=== PATIENT | female | born 1945 | race American Indian/Alaskan Native ===

== ENCOUNTER → 2024-10-01 | Outpatient (BNVA) | payer MEDICARE, MEDICAID, SELFPAY | END | disposition home or self-care (01) | PROVIDERS: PCP Physician Assistant; Referring Provider Physician Assistant; Visit Provider Urology | DX: N32.81 Overactive bladder (principal); I12.9 Hypertensive chronic kidney disease with stage 1 through stage 4 chronic kidney disease, or unspecified chronic kidney disease; E11.22 Type 2 diabetes mellitus with diabetic chronic kidney disease; N18.30 Chronic kidney disease, stage 3 unspecified; E66.9 Obesity, unspecified; Z68.35 Body mass index [BMI] 35.0-35.9, adult; N39.46 Mixed incontinence; Z87.440 Personal history of urinary (tract) infections; E78.00 Pure hypercholesterolemia, unspecified | CPT/HCPCS: 81003; 99212; G0463 ==

== ENCOUNTER 2025-01-04 21:56 | Emergency (ER) | payer MEDICARE, SELFPAY ==
[2025-01-04 21:59] VITALS: BP 169/73; PULSE 66; RESP 18; TEMP 36.8; O2SAT 97
[2025-01-04 22:00] VITALS: BMI 35.5
[2025-01-04 22:25] VITALS: PULSE 76; RESP 18
--- NOTE | 2025-01-04 22:53 | PD.EDADULT ---
ED General RME/HPI General Chief complaint: General Adult/Misc Complain Stated complaint: HIGH SUGAR Time Seen by Provider: 01/04/25 22:25 Arrival date/time: 01/04/25 21:56 RME / HPI RME / HPI narrative: Dr. Ballard?s Main ED Evaluation: 79yo female with a history of DM BIBA from home presents to the ED for a chief complaint of high blood sugar. Patient states she forgot to take her diabetic medications last night. She states she was checking her blood sugar tonight and it was noted to be high , so she came in for evaluation. Patient denies any headache, dizziness, vision changes, cough, chest pain, abdominal pain, N/V or any other associated symptoms. No known allergies. Related Data Home Medications ?Medication ?Instructions ?Recorded ?Confirmed atorvastatin 40 mg tablet 40 mg PO QDAY 11/05/17 10/01/24 hydrochlorothiazide 25 mg tablet 25 mg PO QDAY 11/05/17 10/01/24 lisinopril 40 mg tablet 40 mg PO QDAY 11/05/17 10/01/24 metformin 1,000 mg tablet 1,000 mg PO BID 11/05/17 10/01/24 carvedilol 3.125 mg tablet (Coreg) 3.125 mg PO BID 09/14/20 10/01/24 insulin lispro 100 unit/mL 100 unit subcut QDAY 09/14/20 10/01/24 subcutaneous pen (Humalog KwikPen (U-100) Insulin) gabapentin 100 mg capsule 100 mg PO QPM 12/23/20 10/01/24 estradiol 0.01% (0.1 mg/gram) 2 g vaginal DIRECTED 10/01/24 10/01/24 vaginal cream (Estrace) nitrofurantoin 100 mg PO QDAY 10/01/24 10/01/24 monohydrate/macrocrystals 100 mg capsule (Macrobid) oxybutynin chloride 5 mg tablet 5 mg PO QDAY 10/01/24 10/01/24 vibegron 75 mg tablet (Gemtesa) 75 mg PO QDAY 10/01/24 10/01/24 Allergies Allergy/AdvReac Type Severity Reaction Status Date / Time No Known Allergies Allergy Verified 01/04/25 22:31 Review of Systems Review of Systems Systems Reviewed: All systems reviewed, normal except as documented ED Exam Narrative Physical exam: GENERAL APPEARANCE: alert and oriented x 4, well-developed, well-nourished, no acute distress VITALS: All vitals were reviewed and the pulse ox is 97% on room air, which is normal according to my interpretation. HEENT: Normocephalic, atraumatic; pupils equal, round, reactive to light; EOMI; mucous membranes pink, moist; oropharynx clear NECK: Supple LUNGS: CTABL; no wheezes, no rales, no rhonchi HEART: Regular rate, regular rhythm; normal S1, S2; no murmurs ABDOMEN: non distended; normal BS; soft, no tenderness, no guarding, no rebound; no masses, no organomegaly, no hernia BACK: no CVA tenderness EXTREMITIES: atraumatic; no edema NEUROLOGIC: awake; alert and oriented x4; cranial nerves II-XII grossly intact; no focal sensory or motor deficits PSYCHIATRIC: appropriate mood and affect SKIN: warm, dry, normal color; no rashes Course Quality Measures none Orders Category Date Time Status Compatibility Test Engineer Q4H START 00 Care 01/04/25 22:48 Active Continuous Pulse Oximetry NOW Care 01/04/25 22:48 Completed Fingerstick [Bedside Blood Glucose] NOW Care 01/04/25 22:31 Active CBC Stat Lab 01/04/25 22:56 Completed CMP [Comprehensive Metabolic Panel] Stat Lab 01/04/25 22:56 Completed Magnesium Stat Lab 01/04/25 22:56 Completed VBG [Venous Blood Gas] Stat Lab 01/04/25 22:56 Completed Insulin Regular Med 01/05/25 00:25 Discontinued 5 unit IV X1 ONE Vital Signs Vital signs: Vital Signs Temperature 98.3 F 01/04/25 21:59 Pulse Rate 66 01/04/25 21:59 Respiratory Rate 18 01/04/25 21:59 Blood Pressure 169/73 H 01/04/25 21:59 Pulse Oximetry (%) 97 01/04/25 21:59 Oxygen Delivery Method Room Air 01/04/25 21:59 Discharge Plan Plan Patient Disposition: HOME (Self Care) Disposition Comment: Stable for discharge home Patient condition on transfer: Stable Prescriptions/Referrals Prescriptions/Med Rec: No Action oxybutynin chloride 5 mg tablet 5 mg PO QDAY Gemtesa 75 mg tablet 75 mg PO QDAY estradiol [Estrace] 0.01 % (0.1 mg/gram) cream 2 g vaginal DIRECTED Patient Comments: twice a week nitrofurantoin monohyd/m-cryst [Macrobid] 100 mg capsule 100 mg PO QDAY Rx Instructions: must administer with a meal/food atorvastatin 40 mg Tablet 40 mg PO QDAY metformin 1,000 mg Tablet 1,000 mg PO BID hydrochlorothiazide 25 mg Tablet 25 mg PO QDAY lisinopril 40 mg Tablet 40 mg PO QDAY carvedilol [Coreg] 3.125 mg Tablet 3.125 mg PO BID insulin lispro [Humalog KwikPen Insulin] 100 unit/mL Insulin Pen 100 unit SUBCUT QDAY gabapentin 100 mg capsule 100 mg PO QPM Patient Comments: TK 1 C PO QPM Referrals: Pankaj Vargas PA-C [Primary Care Provider] - In 1 week Problem List Clinical Impression: Acute hyperglycemia Patient/Caregiver Discharge Instructions Discharge Activity: activity as tolerated Education Materials: High Blood Sugar (Hyperglycemia) Additional Instructions: Please return to the emergency department if you have any worsening or any further medical problems and we will help you. Otherwise you should follow-up with your primary care doctor within the next several days. Print Language: Ecuadorean Stand Alone Forms: [employer] Award Info., Patient Portal Info Letter MDM Patient Acuity Low Acuity (complete MDM as needed) Narrative: Scribe Attestation: 01/04/25 - Jalyn Chino am scribing for and in the presence of Dr. Ballard. 5 units of insulin ordered due to the patient's blood sugar being 415. 0205: Repeat FSBS is 232. Patient is stable to be discharged home. Clinical Information Provided by: patient Medical Records reviewed [facility] (Per chart review, patient has no relevant previous ED visits.) Labs/Rad/Tests considered, not ordered None Chronic Illness/Social Conditions which may negatively complicate care or outcome(s)-explain: other (History of DM) EKG EKG not done Labs Labs: Interpreted by me Lab(s) Interpretation(s): CBC is normal, Sodium is 132, Glucose is 415, according to my interpretation. Medication Administration(s) Medication Administration History Discontinued Medications Insulin Human Regular (Insulin Hum Regular 1 Unit/0.01 Ml (Per Unit)) 5 unit IV X1 ONE Stop: 01/05/25 00:26 Last Admin: 01/05/25 00:56 Dose: 5 unit Documented By: BRENDA Co-signed By: AMAN Insulin Diagnosis Differential Diagnosis ED Complaint MDM: hyperglycemia without ketosis, DKA, hyperosmolar state, dehydration
[2025-01-04 23:05] LABS: Base Excess, Venous 6 (-3-3); O2 Saturation, Venous 47 % (96-97); PCO2, Venous 50 mmHg (36-56); PO2, Venous 26 mmHg (15-58); pH, Venous 7.41 (7.33-7.66)
[2025-01-04 23:08] LABS: Basophils % (Auto) 0 % (0-2.5); Eosinophils # (Auto) 0.2 Thou/mm3 (0.0-0.5); Eosinophils % (Auto) 2 % (0-10); Hematocrit 38.6 % (36.0-46.0); Hemoglobin 13.3 g/dL (12.0-16.0); Immature Granulocytes % (Auto) 1 % (0-0); Immature Granulocytes Auto 0.05 Thou/mm3 (0.00-0.00); Lymphocytes # (Auto) 2.3 Thou/mm3 (1.0-4.8); Lymphocytes % (Auto) 26 % (10-50); Mean Corpuscular HGB Conc 34.5 g/dl (31.0-37.0); Mean Corpuscular Hemoglobin 29.3 pg (25.0-35.0); Mean Corpuscular Volume 85 fL (80-100); Monocytes # (Auto) 0.8 Thou/mm3 (0.0-0.8); Monocytes % (Auto) 9 % (0-12); Neutrophils # (Auto) 5.5 Thou/mm3 (1.8-7.7); Neutrophils % (Auto) 62 % (37-80); Nucleated Red Blood Cell % 0 /100 WBC (0); Platelet Count 278 Thou/mm3 (140-440); RDW Standard Deviation 40.2 fL (36.4-46.3); Red Blood Count 4.54 Miln/mm3 (4.00-5.20); White Blood Count 8.9 Thou/mm3 (3.6-11.0)
[2025-01-04 23:33] LABS: Alanine Aminotransferase 24 U/L (10-49); Albumin/Globulin Ratio 1.5 (1.2-2.2); Alkaline Phosphatase 202 U/L (46-116); Anion Gap 4 (7-16); Aspartate Amino Transferase 20 U/L (0-34); BUN/Creatinine Ratio 15 Ratio (12-20); Bilirubin,Total 0.6 mg/dL (0.3-1.2); Blood Urea Nitrogen 20 mg/dL (9-23); Calcium 9.4 mg/dL (8.3-10.6); Calcium (Corrected) 9.4 mg/dL (8.5-10.1); Carbon Dioxide 29.9 mMol/L (20.0-31.0); Chloride 98 mMol/L (98-107); Creatinine (Component) 1.3 mg/dL (0.6-1.3); Estimated Creatinine Clearance 35.9 mL/min (>60); Globulin 2.7 gm/dL (2.3-3.5); Osmolality,Calculated 285 (275-295); Potassium 4.2 mMol/L (3.4-5.1); Sodium 132 mMol/L (136-145); Total Protein 6.7 gm/dL (5.7-8.2); eGFR 42 See Note
[2025-01-05 00:06] LABS: Glucose 415 mg/dL (74-106)
[2025-01-05 00:53] VITALS: BP 146/78; PULSE 60; PULSE 66; RESP 18; TEMP 36.7; O2SAT 98
[2025-01-05] MEDS: INSULIN HUM REGULAR 1 UNIT/0.01 ML (PER UNIT) 5 UNIT IV (00:56)
[2025-01-05 02:17] VITALS: BP 124/89; PULSE 74; RESP 19; TEMP 36.6; O2SAT 99
== END 2025-01-05 02:21 | disposition home or self-care (01) ==
PROVIDERS: Emergency Provider Emergency Medicine; PCP Physician Assistant
DX: E11.65 Type 2 diabetes mellitus with hyperglycemia (principal); Z79.84 Long term (current) use of oral hypoglycemic drugs; Z79.4 Long term (current) use of insulin
CPT/HCPCS: 36415; 80053; 82803; 83735; 85025; 99283; J1815

== ENCOUNTER → 2025-05-07 | Outpatient (CLI) | payer MEDICARE, SELFPAY ==
--- NOTE | 2025-05-07 | XR_ITS ---
Examination: Transvaginal ultrasound of the pelvis, complete Technique: Transvaginal sonographic images pelvis performed using woods scale imaging Exam date and time: May 07, 2025 1447 hours INDICATIONS: Abnormal uterine and vaginal bleeding beginning 2 days ago. FINDINGS: Uterus 5.0 cm endometrial stripe 0.3 cm Anterior fundal uterine mass 15 x 13 x 16 mm Ovaries obscured by bowel gas. IMPRESSION: Small area of anterior fundal uterine fibroid degeneration, consider 6 month follow-up transvaginal pelvic sonography.
--- NOTE | 2025-05-07 13:53 | XR_ITS ---
Examination: Abdomen sonogram, complete Date and time of exam: May 07, 2025 1439 hours INDICATIONS: Abdominal and pelvic pain beginning 2 days ago with uterine bleeding. Technique: Multiple real-time grayscale transabdominal sonographic images of the abdomen have been obtained. Findings: Normal gallbladder. Normal common bile duct 0.5 cm Pancreatic head 1.7 cm Aorta not enlarged. Liver 16.2 cm fatty infiltration no focal liver lesions. Normal hepatopedal portal venous flow Patent IVC Right kidney 7.8 cm cortex 1.4 cm Left kidney 8.9 cm cortex 2.2 cm Moderate renal parenchymal scar formation. Spleen 7.2 cm IMPRESSION: Normal gallbladder Fatty infiltration throughout the liver Moderate bilateral renal parenchymal scar formation
== END | disposition home or self-care (01) ==
LOC: CDIM 13:28
PROVIDERS: PCP Physician Assistant; Referring Provider Physician Assistant; Visit Provider Physician Assistant
DX: K76.0 Fatty (change of) liver, not elsewhere classified (principal); N28.89 Other specified disorders of kidney and ureter
CPT/HCPCS: 76700; 76830

== ENCOUNTER → 2025-06-11 | Outpatient (CLI) | payer MEDICARE, SELFPAY ==
--- NOTE | 2025-06-11 13:00 | XR_ITS ---
Examination: Bone densitometry Date and time of exam:June 11, 2025, 1302 hours INDICATIONS: Menopause age 47, postmenopausal ankle fracture 6 years ago, personal history osteopenia Technique: Lumbar spine and hip total bone mineralization values of an calculated. Peak reference and age match control results have been displayed. Findings: Lumbar spine total bone mineralization is0.986 gm/cm2. This is 0.6 standard deviations below peak reference. This is 2.0 standard deviations above age-matched controls. Hip total bone mineralization is 0.782 gm/cm2 This is 1.3 standard deviations below peak reference. This is 0.6 standard deviations above age-matched controls Impression: There is normal mineralization based on lumbar spine measurements. There is osteopenia based on hip measurements Lumbar mineralization is decreased 2.7% compared with June 27, 2018 Hip mineralization is decreased 0.2% compared with June 27, 2018
== END | disposition home or self-care (01) ==
PROVIDERS: PCP Physician Assistant; Referring Provider Physician Assistant; Visit Provider Physician Assistant
DX: M85.89 Other specified disorders of bone density and structure, multiple sites (principal)
CPT/HCPCS: 77080